=== PATIENT | male | born 1990 | race Two or more races ===

== ENCOUNTER 2022-07-15 02:59 | Emergency (ER) | payer OTHER ==
[~2022-07-15] VITALS: Ht 160 cm; Wt 69.9 kg
== END 2022-07-15 05:04 | disposition home or self-care (01) ==
LOC: ER 02:59
DX: S01.82XA Laceration with foreign body of other part of head, initial encounter (principal); W50.0XXA Accidental hit or strike by another person, initial encounter; Y93.9 Activity, unspecified; Y92.89 Other specified places as the place of occurrence of the external cause